=== PATIENT | male | born 1960 | race Caucasian/White ===

== ENCOUNTER 2017-12-13 08:05 | Day surgery (SDC) | payer BC ==
[2017-12-12 11:15] VITALS: BMI 25.0
[2017-12-13 08:48] LABS: #Lymphocytes 2.1 thou/uL (1.20-3.40); #Monocytes 0.6 thou/uL (0.11-0.59); #Neutrophils 8.3 thou/uL (1.40-6.50); %Basophils 0.4 % (0.0-1.0); %Eosinophils 0.4 % (0.0-10.0); %Lymphocytes 18.7 % (21.0-51.0); %Monocytes 5.3 % (0.0-10.0); %Neutrophils 75.1 % (42.0-75.0); Hemoglobin 17.5 g/dL (14.0-18.0); Mean Corpuscular HGB CONC 34.4 g/dL (32.0-36.0); Mean Corpuscular Hemoglobin 32.6 pg (27.0-31.0); Mean Corpuscular Volume 94.6 fL (78.0-98.0); Mean Platelet Volume 7.9 fL (7.4-10.4); Platelet Count 248 thou/uL (130-400); RBC Distribution Width 11.9 % (11.5-14.5); Red Blood Cell (RBC) Count 5.38 mill/uL (4.70-6.10)
[2017-12-13 09:05] LABS: Anion Gap 14 mmol/L (10-20); BUN (Urea Nitrogen) 24 mg/dL (8.4-25.7); Calc. Creatinine Clearance 108 mL/min (70-130); Calcium 10.6 mg/dL (7.8-10.44); Carbon Dioxide 27 mmol/L (22-29); Chloride 104 mmol/L (98-107); Estimated GFR-MDRD 86; Glucose 105 mg/dL (70-105); Potassium 4.9 mmol/L (3.5-5.1); Sodium 140 mmol/L (136-145)
[2017-12-13] MEDS ORDERED: CEFAZOLIN/Water 2 GM/20 ML SYRINGE ONE (09:07)
[2017-12-13] MEDS ORDERED: Sodium Chloride 0.9% 10 ML ONE (10:40)
[2017-12-13] MEDS ORDERED: Fentanyl 250 MCG/5 ML VIAL ONE (10:45)
[2017-12-13] MEDS ORDERED: Midazolam HCl 2 mg/2 ml Vial ONE (10:45)
--- NOTE | 2017-12-13 12:38 | OP ---
DATE OF PROCEDURE: 12/13/2017 SURGEON: Jonathan Rizzo M.D. BLIND HANGER: Neha Arias PROCEDURE: Right L5-S1 laminectomy, facetectomy, foraminotomy, and discectomy, interbody arthrodesis , intravertebral biomechanical device, local morselized autograft, demineralized bone matrix, posteri or lateral arthrodesis, and pedicle screw instrumentation to right L5-S1. PROCEDURE IN DETAIL: The patient was brought to the operating room and intubated. He was rolled in the prone position on gel-filled chest rolls. The previous incision was reopened and extended and th e L5-S1 region was exposed bilaterally. We performed a right L5-S1 laminectomy, facetectomy, and for aminotomy. We found a large herniated disk, as expected, which was debrided in multiple fragments an d a complete decompression of right S1 and right L5 was achieved. The disk itself was incised and de brided and the bony endplates decorticated for the purpose of arthrodesis. An appropriately sized in travertebral biomechanical PEEK device was brought into the field, filled with demineralized bone mat kori, local morselized autograft, and tapped into place securely at L5-S1. Next, pedicle screws were placed at right L5 and right S1 using lateral fluoroscopic guidance and positioning was confirmed by x-ray. Raul was secured between the screws, connected by nuts which were final tightened. The wound was then extensively irrigated, immaculate hemostasis was secured. A combination of demineralized alonso ne matrix, local morselized autograft was laid over the laminar and posterolateral surfaces for the p urpose of arthrodesis. Vancomycin powder was applied and the wound was then closed in anatomic layer s.
[2017-12-13] MEDS ORDERED: Fentanyl 100 MCG/2 ML VIAL ONE (12:59)
[2017-12-13] MEDS ORDERED: PROPOFOL 200 MG/20 ML VIAL ONE (14:54)
[2017-12-13] MEDS ORDERED: Ondansetron HCl/PF 4 MG/2 ML Vial ONE (14:54)
[2017-12-13] MEDS ORDERED: Lidocaine 1% PF 5 ML VIAL ONE (14:54)
[2017-12-13] MEDS ORDERED: Glycopyrrolate 0.2 MG/ML 5 ML SYRINGE ONE (14:54)
[2017-12-13] MEDS ORDERED: Dexamethasone 20 MG/5 ML VIAL ONE (14:54)
--- NOTE | 2017-12-13 15:40 | EKG ---
Test Reason : PREOP Blood Pressure : / mmHG Vent. Rate : 076 BPM Atrial Rate : 076 BPM P-R Int : 156 ms QRS Dur : 124 ms QT Int : 396 ms P-R-T Axes : 048 -30 052 degrees QTc Int : 445 ms Normal sinus rhythm Left axis deviation Non-specific intra-ventricular conduction delay Abnormal ECG When compared with ECG of 05-FEB-2016 09:41, Vent. rate has increased BY 25 BPM Non-specific intra-ventricular conduction delay has replaced Incomplete right bundle branch block Confirmed by JENNIFER MARTINEZ, SErnst ([id number]) on 12/13/2017 3:39:55 PM Referred By: JEAN Confirmed By:DR. Sosa RODRIGUEZ MD
== END 2017-12-13 16:52 | disposition home or self-care (01) ==
LOC: SDC 08:05
PROVIDERS: ATTEND Neurological Surgery
PROC: 01NB0ZZ Release Lumbar Nerve, Open Approach (ICD-10-PCS; principal; 2017-12-13)
DX: M51.17 Intervertebral disc disorders with radiculopathy, lumbosacral region (principal)
CPT/HCPCS: 36415; 76001; 80048; 85025; 93005; 93010; 96374; A4216; C1713; C1768; J1100; J2001; J2250; J2405; J2704; J3010; J3370; J3490

== ENCOUNTER 2017-12-28 10:29 | Outpatient (CLI) | payer BC ==
--- NOTE | 2017-12-28 11:14 | RAD ---
LUMBAR SPINE SERIES TWO VIEWS: History: Post op. FINDINGS: Left unilateral pedicle screws have been placed at the L5-S1 level. Overlying surgical deborah are se en. Markers of a disc implant are within the confines of the L5-S1 level. IMPRESSION: Post-operative changes of the spine. POS: [facility]
== END 2017-12-28 10:30 | disposition home or self-care (01) ==
LOC: TBSIIMAG 10:29
PROVIDERS: ATTEND Neurological Surgery
DX: M54.16 Radiculopathy, lumbar region (principal); Z98.890 Other specified postprocedural states
CPT/HCPCS: 72100

== ENCOUNTER 2018-01-31 14:08 | Outpatient (CLI) | payer BC ==
--- NOTE | 2018-01-31 14:25 | RAD ---
LUMBAR SPINE TWO VIEWS: Comparison: 12-28-17 History: Lumbar radiculopathy. Status post-surgery. FINDINGS: Interval removal of skin deborah. There is a right sided unilateral transpedicular screw at L5 and S1 . No perihardware lucency. No spondylolisthesis or spondylosis. Disc prosthesis at L5-S1 is noted and is unchanged. Vertebral body heights are maintained. No fracture. IMPRESSION: Stable lumbar sacral fusion changes as above. POS: [facility]
== END 2018-01-31 14:09 | disposition home or self-care (01) ==
LOC: TBSIIMAG 14:08
PROVIDERS: ATTEND Neurological Surgery
DX: M54.16 Radiculopathy, lumbar region (principal); Z98.1 Arthrodesis status
CPT/HCPCS: 72100

== ENCOUNTER 2021-03-26 11:19 | Outpatient (CLI) | payer BC | END 2021-03-26 11:20 | disposition home or self-care (01) | LOC: MRI 11:19 | PROVIDERS: ATTEND Family Medicine | DX: M54.41 Lumbago with sciatica, right side (principal); R20.0 Anesthesia of skin; M47.816 Spondylosis without myelopathy or radiculopathy, lumbar region; M48.061 Spinal stenosis, lumbar region without neurogenic claudication; N28.9 Disorder of kidney and ureter, unspecified; Z98.890 Other specified postprocedural states | CPT/HCPCS: 72148 ==